=== PATIENT | male | born 1960 | race African-American/Black ===

== ENCOUNTER 2022-06-29 09:54 | Observation (INO) ==
[~2022-06-29 09:54] MED LIST: ASPIRIN 325 MG TABLET PO ONE; DIAZEPAM 5 MG TABLET PO ONE; MAGNESIUM SULF RIDER 2 GM/50 ML PREMIX IV PRN; POTASSIUM CHLORIDE RIDER 10 MEQ/100 ML PREMIX IV PRN; diphenhydrAMINE CAP 25 MG CAPSULE PO ONE
[2022-06-29 10:56] LABS: Basophils # 0.1 10*3/uL (0.0-0.2); Basophils % 1.2 % (0.0-0.8); Eosinophils # 0.3 10*3/uL (0.0-0.87); Hematocrit 35.6 VOL% (42.0-52.0); Hemoglobin 11.8 GM/DL (14.0-18.0); Immature Granulocytes % 0.4 %; Immature Granulocytes Absolute 0.04 #; Lymphocytes # 1.6 10*3/uL (1.4-4.0); Lymphocytes % 18.3 % (21.2-54.2); Mean Corpuscular HGB Conc 33.1 GM/DL (32-36); Mean Corpuscular Volume 86.2 FL (87-102); Monocytes # 0.4 10*3/uL (0.11-0.8); Monocytes % 4.9 % (1.7-12.7); Neutrophils % 72.2 % (38.7-73.9); Platelet Count 184 T/CUMM (130-400); Red Blood Count 4.13 MC/CUMM (3.8-5.5); Red Cell Distribution Width 13.1 % (9.3-17.3)
[2022-06-29 11:03] LABS: INR 0.9; PT Patient Result 10.4 SECS (10.1-12.1)
[2022-06-29] MEDS ORDERED: diphenhydrAMINE CAP 25 MG CAPSULE ONE (11:20)
[2022-06-29] MEDS ORDERED: DIAZEPAM 5 MG TABLET ONE (11:20)
[2022-06-29] MEDS ORDERED: ASPIRIN 325 MG TABLET ONE (11:21)
[2022-06-29 11:26] LABS: Albumin 3.6 G/DL (3.4-5.0); Bilirubin,Total 0.4 MG/DL (0.20-1.00); Calcium 8.7 MG/DL (8.5-10.1); Osmolality,Calculated 284.4 MOS/KG (273-304); Potassium 4.4 MMOL/L (3.5-5.1); Total Protein 7.5 G/DL (6.4-8.2)
[2022-06-29] MEDS: SODIUM CHLORIDE 0.9% 1,000 ML IV SCH ×2 (11:33→21:32)
[2022-06-29] MEDS ORDERED: HEPARIN/NACL 0.9% 2 UNITS/ML 1,000 UNIT/500 ML BAG IV ONE ×3 (13:19→14:40)
[2022-06-29] MEDS ORDERED: fentaNYL 100 MCG/2 ML VIAL ONE (13:40)
[2022-06-29] MEDS ORDERED: MIDAZOLAM 2 MG/2 ML VIAL ONE (13:40)
[2022-06-29] MEDS ORDERED: HYDROmorphone 1 MG/1 ML SYRINGE ONE (14:28)
[2022-06-29] MEDS ORDERED: HEPARIN 5,000 UNIT/1 ML VIAL ONE (14:36)
[2022-06-29] MEDS ORDERED: NITROGLYCERIN DRIP 50 MG/250 ML BOTTLE IV ONE ×2 (14:48→14:49)
[2022-06-29] MEDS ORDERED: CLOPIDOGREL 75 MG TABLET ONE (14:53)
[2022-06-30] MEDS ORDERED: hydrALAZINE 20 MG/1 ML VIAL IV PRN (05:54)
[2022-06-30] MEDS ORDERED: NON-FORMULARY MEDICATION (Insulin Regular Human [Novolin R Flexpen] 100 unit/mL (3 mL) Ins SUBCUT SCH (07:15)
[2022-06-30] MEDS ORDERED: DEXTROSE 10% 250 ML BAG IV PRN (07:26)
[2022-06-30] MEDS ORDERED: GLUCAGON 1 MG VIAL IM PRN (07:26)
[2022-06-30] MEDS ORDERED: glipiZIDE 5 MG TABLET PO SCH (08:00)
[2022-06-30] MEDS: INSULIN REGULAR 100 UNIT/ML SUBCUT SCH ×3 (08:43→16:36)
[2022-06-30] MEDS ORDERED: amLODIPine 10 MG TABLET PO SCH (09:00)
[2022-06-30] MEDS ORDERED: ATORVASTATIN 40 MG TABLET PO SCH (09:00)
[2022-06-30] MEDS ORDERED: ISOSORBIDE MONONITRATE 60 MG TABLET PO SCH (09:00)
[2022-06-30] MEDS ORDERED: CLOPIDOGREL 75 MG TABLET PO SCH (09:00)
[2022-06-30] MEDS ORDERED: ASPIRIN EC 81 MG TABLET PO SCH (09:00)
[2022-06-30] MEDS ORDERED: COD LIVER OIL PO SCH (09:00)
[2022-06-30] MEDS ORDERED: GABAPENTIN 100 MG CAPSULE PO SCH (09:00)
[2022-06-30] MEDS: INSULIN NPH/REG 70/30 100 UNIT/ML SUBCUT SCH ×2 (09:06→18:13)
[2022-06-30 15:53] VITALS: BP 147/74
[2022-06-30] MEDS: SODIUM CHLORIDE 0.9% 1,000 ML IV SCH ×2 (16:35→16:36)
[2022-06-30] MEDS ORDERED: lisinopriL 20 MG TABLET PO SCH (21:00)
== END 2022-06-30 18:45 | disposition home or self-care (01) ==
LOC: N.3E 09:54 → N.CL 09:54 → EDBD 13:00 → N.3E 16:38
PROVIDERS: ADMIT Internal Medicine Cardiovascular Disease; ATTEND Internal Medicine Cardiovascular Disease

== ENCOUNTER 2022-07-14 06:56 | Inpatient (IN) ==
[2022-07-08 13:05] LABS: Basophils # 0.2 10*3/uL (0.0-0.2); Basophils % 1.9 % (0.0-0.8); Eosinophils # 0.2 10*3/uL (0.0-0.87); Eosinophils % 2.6 % (0.00-10.9); Hematocrit 31.7 VOL% (42.0-52.0); Hemoglobin 10.5 GM/DL (14.0-18.0); Immature Granulocytes % 0.3 %; Immature Granulocytes Absolute 0.02 #; Lymphocytes # 1.5 10*3/uL (1.4-4.0); Lymphocytes % 19.3 % (21.2-54.2); Mean Corpuscular HGB Conc 33.1 GM/DL (32-36); Mean Corpuscular Volume 87.8 FL (87-102); Mean Platelet Volume 13.5 FL (9.6-12.0); Monocytes # 0.5 10*3/uL (0.11-0.8); Monocytes % 5.8 % (1.7-12.7); Neutrophils % 70.1 % (38.7-73.9); Platelet Count 226 T/CUMM (130-400); Red Blood Count 3.61 MC/CUMM (3.8-5.5); Red Cell Distribution Width 12.7 % (9.3-17.3)
[2022-07-08 13:14] LABS: INR 0.9; PT Patient Result 10.4 SECS (10.1-12.1); Partial Thromboplastin Time 26.4 SECS (23.7-32.9)
[2022-07-08 13:41] LABS: Calcium 8.9 MG/DL (8.5-10.1); Potassium 4.5 MMOL/L (3.5-5.1)
[2022-07-14] MEDS ORDERED: FAMOTIDINE 20 MG TABLET PO ONE (07:20)
[2022-07-14] MEDS ORDERED: DIAZEPAM 5 MG TABLET PO ONE (07:20)
[2022-07-14] MEDS ORDERED: LACTATED RINGERS 1,000 ML IV SCH (07:30)
[2022-07-14] MEDS ORDERED: INSULIN REGULAR 100 UNIT/ML IV ONE (07:47)
[2022-07-14] MEDS ORDERED: INSULIN REGULAR 100 UNIT/ML ONE (07:52)
[2022-07-14] MEDS ORDERED: BUPIVACAINE 0.5% 50 ML VIAL ONE (09:41)
[2022-07-14] MEDS ORDERED: HEPARIN 5,000 UNIT/1 ML VIAL ONE (09:41)
[2022-07-14] MEDS ORDERED: fentaNYL 100 MCG/2 ML VIAL ONE (10:01)
[2022-07-14] MEDS ORDERED: propofoL 200 MG/20 ML VIAL IV ONE (10:25)
[2022-07-14] MEDS ORDERED: ROCURONIUM 50 MG/5 ML VIAL IV ONE (10:25)
[2022-07-14] MEDS ORDERED: LIDOCAINE 2% 5 ML VIAL ONE (10:25)
[2022-07-14] MEDS ORDERED: DESFLURANE 1 UNIT/15 MINUTE INH ONE (10:25)
[2022-07-14] MEDS ORDERED: PHENYLEPHRINE 10 MG/1 ML VIAL IV ONE (10:49)
[2022-07-14] MEDS ORDERED: LACTATED RINGERS 1,000 ML IV ONE (11:04)
[2022-07-14] MEDS: LACTATED RINGERS 1,000 ML IV SCH ×2 (12:00→20:34)
[2022-07-14] MEDS ORDERED: HYDROmorphone 1 MG/1 ML SYRINGE IV PRN ×2 (12:12)
[2022-07-14] MEDS ORDERED: ONDANSETRON 4 MG/2 ML VIAL IV PRN (12:20)
[2022-07-14] MEDS ORDERED: GLUCAGON 1 MG VIAL IM PRN (12:23)
[2022-07-14] MEDS ORDERED: carBAMazepine 200 MG TABLET PO SCH (12:35)
[2022-07-14] MEDS ORDERED: DEXTROSE 10% 250 ML BAG IV PRN (12:35)
[2022-07-14] MEDS ORDERED: HEPARIN 10,000 UNIT/10 ML VIAL ONE (12:39)
[2022-07-14 12:40] VITALS: BP 156/75
[2022-07-14] MEDS: glipiZIDE 5 MG TABLET PO SCH (13:00)
[2022-07-14] MEDS: GABAPENTIN 100 MG CAPSULE PO SCH (13:00)
[2022-07-14] MEDS: TAMSULOSIN 0.4 MG CAPSULE PO SCH (13:00)
[2022-07-14] MEDS: amLODIPine 10 MG TABLET PO SCH (13:00)
[2022-07-14] MEDS: ASPIRIN EC 81 MG TABLET PO SCH (13:00)
[2022-07-14] MEDS: INSULIN REGULAR 100 UNIT/ML SUBCUT SCH ×3 (13:00→20:32)
[2022-07-14] MEDS ORDERED: NON-FORMULARY MEDICATION PO SCH (13:00)
[2022-07-14] MEDS: CLOPIDOGREL 75 MG TABLET PO SCH (13:00)
[2022-07-14] MEDS: lisinopriL 20 MG TABLET PO SCH (13:00)
[2022-07-14] MEDS: ATORVASTATIN 40 MG TABLET PO SCH (13:00)
[2022-07-14] MEDS: ISOSORBIDE MONONITRATE 60 MG TABLET PO SCH (13:00)
[2022-07-14] MEDS ORDERED: INSULIN REGULAR 100 UNIT/ML SUBCUT SCH (16:30)
[2022-07-14] MEDS: INSULIN ASPART PROTAMINE/ASPART 70/30 100 UNIT/ML SUBCUT SCH (16:37)
[2022-07-14] MEDS ORDERED: CARBAMAZEPINE 300 MG PO SCH (21:00)
[2022-07-15 05:02] LABS: Basophils # 0.1 10*3/uL (0.0-0.2); Basophils % 0.8 % (0.0-0.8); Eosinophils # 0.2 10*3/uL (0.0-0.87); Eosinophils % 1.8 % (0.00-10.9); Hematocrit 27.1 VOL% (42.0-52.0); Hemoglobin 9.1 GM/DL (14.0-18.0); Immature Granulocytes % 0.4 %; Immature Granulocytes Absolute 0.04 #; Lymphocytes # 1.9 10*3/uL (1.4-4.0); Lymphocytes % 17.8 % (21.2-54.2); Mean Corpuscular HGB Conc 33.6 GM/DL (32-36); Monocytes # 0.7 10*3/uL (0.11-0.8); Monocytes % 6.3 % (1.7-12.7); Neutrophils % 72.9 % (38.7-73.9); Platelet Count 175 T/CUMM (130-400); Red Blood Count 3.15 MC/CUMM (3.8-5.5); Red Cell Distribution Width 12.8 % (9.3-17.3); White Blood Count 10.5 T/CUMM (4-12)
[2022-07-15 05:07] LABS: Calcium 8.6 MG/DL (8.5-10.1); Osmolality,Calculated 282.8 MOS/KG (273-304); Potassium 4.4 MMOL/L (3.5-5.1)
[2022-07-15 05:26] LABS: Hypochromia Slight; Microcytosis Slight; Ovalocytes Slight; Platelet Estimate Adequate
[2022-07-15] MEDS: LACTATED RINGERS 1,000 ML IV SCH (06:08)
[2022-07-15] MEDS ORDERED: metFORMIN 500 MG TABLET PO SCH (08:00)
[2022-07-15] MEDS: CLOPIDOGREL 75 MG TABLET PO SCH (08:26)
[2022-07-15] MEDS: INSULIN REGULAR 100 UNIT/ML SUBCUT SCH ×2 (08:26→11:24)
[2022-07-15] MEDS: lisinopriL 20 MG TABLET PO SCH (08:26)
[2022-07-15] MEDS: ATORVASTATIN 40 MG TABLET PO SCH (08:26)
[2022-07-15] MEDS: ASPIRIN EC 81 MG TABLET PO SCH (08:26)
[2022-07-15] MEDS: glipiZIDE 5 MG TABLET PO SCH (08:26)
[2022-07-15] MEDS: GABAPENTIN 100 MG CAPSULE PO SCH (08:26)
[2022-07-15] MEDS: ISOSORBIDE MONONITRATE 60 MG TABLET PO SCH (08:26)
[2022-07-15] MEDS: TAMSULOSIN 0.4 MG CAPSULE PO SCH (08:27)
[2022-07-15] MEDS: amLODIPine 10 MG TABLET PO SCH (08:31)
[2022-07-15] MEDS: INSULIN ASPART PROTAMINE/ASPART 70/30 100 UNIT/ML SUBCUT SCH (08:56)
[2022-07-15] MEDS ORDERED: ISOSORBIDE MONONITRATE 120 MG PO SCH (09:00)
[2022-07-15] MEDS ORDERED: ASPIRIN CHEW 81 MG TABLET PO SCH (09:00)
[2022-07-15] MEDS ORDERED: NON-FORMULARY MEDICATION (Aspirin 81 mg Capsule) PO SCH (09:00)
[2022-07-15] MEDS ORDERED: amLODIPine 10 MG TABLET PO SCH (09:00)
[2022-07-15] MEDS ORDERED: TAMSULOSIN 0.4 MG CAPSULE PO SCH (09:00)
[2022-07-15] MEDS ORDERED: COD LIVER OIL PO SCH (09:00)
[2022-07-15] MEDS ORDERED: GABAPENTIN 100 MG CAPSULE PO SCH (09:00)
[2022-07-15] MEDS ORDERED: glipiZIDE 5 MG TABLET PO SCH (09:00)
[2022-07-15] MEDS ORDERED: CLOPIDOGREL 75 MG TABLET PO SCH (09:00)
[2022-07-15] MEDS ORDERED: ATORVASTATIN 40 MG TABLET PO SCH (09:00)
[2022-07-15] MEDS ORDERED: lisinopriL 10 MG TABLET PO ONE (10:42)
[2022-07-16] MEDS ORDERED: lisinopriL 10 MG TABLET PO SCH (09:00)
== END 2022-07-15 14:00 | disposition home or self-care (01) | DRG 253 ==
LOC: N.SDSINP 06:56 → N.ICU 12:11
PROVIDERS: ADMIT Surgery; ATTEND Surgery